=== PATIENT | female | born 1985 | race Caucasian/White ===

== ENCOUNTER 2018-10-23 01:16 | Emergency (ER) | payer MEDICAID, OTHER ==
[~2018-10-23] VITALS: Ht 154.9 cm; Wt 62.3 kg
[2018-10-23 01:17] VITALS: Ht 154.9 cm; Wt 62.3 kg
[2018-10-23] MEDS ORDERED: SOD CHLORIDE 0.9% 500 ML IV STA (01:46)
[2018-10-23] MEDS ORDERED: KETOROLAC 15 MG INJ IV STA (01:46)
--- NOTE | 2018-10-23 01:49 | ERD ---
ER Documentation Chief Complaint Chief Complaint PELVIC PAIN XTODAY HPI 33-year-old female, previously healthy, with LMP 09/06/2018, , presents the emergency department, complaining of acute onset of pelvic pain. The pain is dull, constant, 8/10, associated with nausea and decreased appetite. The patient denies fever, no chills, no dysuria, no constipation or diarrhea, no vaginal discharge. ROS All systems reviewed and are negative except as per history of present illness. Medications Home Meds Active Scripts Acetaminophen* (Tylenol*) 325 Mg Tablet, 2 TAB PO Q6 PRN for PAIN AND OR ELEVATED TEMP, #20 TAB Prov:SANG MANCINI MD 10/23/18 Ibuprofen* (Motrin*) 400 Mg Tab, 400 MG PO Q6H PRN for PAIN AND OR ELEVATED TEMP, #20 TAB Prov:SANG MANCINI MD 10/23/18 Allergies Allergies: Coded Allergies: No Known Allergy (Unverified , 01/08/13) PMhx/Soc History of Surgery: No Anesthesia Reaction: No Hx Neurological Disorder: No Hx Respiratory Disorders: No Hx Cardiac Disorders: No Hx Psychiatric Problems: Yes (anxiety) Hx Miscellaneous Medical Probl: Yes (uterine tumors, knee sprain) Hx Alcohol Use: No Hx Substance Use: No Hx Tobacco Use: No Smoking Status: Never smoker FmHx Family History: No diabetes, No coronary disease Physical Exam Vitals Vital Signs Date Temp Pulse Resp B/P (MAP) Pulse Ox O2 O2 Flow FiO2 Time Delivery Rate 10/23/18 97.2 108 19 154/91 100 01:17 (112) Physical Exam Const: No acute distress Head: Atraumatic Eyes: Normal Conjunctiva ENT: Normal External Ears, Nose and Mouth. Neck: Full range of motion. No meningismus. Resp: Clear to auscultation bilaterally Cardio: Regular rate and rhythm, no murmurs Abd: Guarded, tenderness to palpation in the right lower quadrant, non distended. Normal bowel sounds Skin: No petechiae or rashes Back: No midline or flank tenderness Ext: No cyanosis, or edema Neur: Awake and alert Psych: Normal Mood and Affect Result Diagram: 10/23/18 0201 10/23/18 0201 Results 24 hrs Laboratory Tests Test 10/23/18 01:59 10/23/18 02:01 POC Beta HCG, Qualitative NEGATIVE White Blood Count 11.8 10^3/ul Red Blood Count 4.82 10^6/ul Hemoglobin 14.5 g/dl Hematocrit 43.6 % Mean Corpuscular Volume 90.5 fl Mean Corpuscular Hemoglobin 30.1 pg Mean Corpuscular Hemoglobin Concent 33.3 g/dl Red Cell Distribution Width 13.2 % Platelet Count 304 10^3/UL Mean Platelet Volume 10.3 fl Immature Granulocytes % 0.400 % Neutrophils % 53.4 % Lymphocytes % 35.9 % Monocytes % 8.6 % Eosinophils % 1.4 % Basophils % 0.3 % Nucleated Red Blood Cells % 0.0 /100WBC Immature Granulocytes # 0.050 10^3/ul Neutrophils # 6.3 10^3/ul Lymphocytes # 4.2 10^3/ul Monocytes # 1.0 10^3/ul Eosinophils # 0.2 10^3/ul Basophils # 0.0 10^3/ul Nucleated Red Blood Cells # 0.0 10^3/ul Urine Color YELLOW Urine Clarity SLIGHTLY CLOUDY Urine pH 5.0 Urine Specific [place] 1.011 Urine Ketones NEGATIVE mg/dL Urine Nitrite NEGATIVE mg/dL Urine Bilirubin NEGATIVE mg/dL Urine Urobilinogen NEGATIVE mg/dL Urine Leukocyte Esterase NEGATIVE Mickey/ul Urine Microscopic RBC 2 /HPF Urine Microscopic WBC 4 /HPF Urine Squamous Epithelial Cells FEW /HPF Urine Mucus FEW /HPF Urine Hemoglobin 1+ mg/dL Urine Glucose NEGATIVE mg/dL Urine Total Protein NEGATIVE mg/dl Sodium Level 144 mmol/L Potassium Level 4.4 mmol/L Chloride Level 109 mmol/L Carbon Dioxide Level 23 mmol/L Anion Gap 12 Blood Urea Nitrogen 12 mg/dl Creatinine 0.81 mg/dl Est Glomerular Filtrat Rate mL/min > 60 mL/min Glucose Level 91 mg/dl Calcium Level 10.0 mg/dl Total Bilirubin 0.2 mg/dl Direct Bilirubin 0.00 mg/dl Indirect Bilirubin 0.2 mg/dl Aspartate Amino Transf (AST/SGOT) 31 IU/L Alanine Aminotransferase (ALT/SGPT) 14 IU/L Alkaline Phosphatase 87 IU/L Total Protein 8.8 g/dl Albumin 4.8 g/dl Globulin 4.00 g/dl Albumin/Globulin Ratio 1.20 Lipase 86 U/L Current Medications Medications Dose Sig/Ariana Start Time Status Last (Trade) Ordered Route PRN Stop Time Admin Dose Reason Admin Sodium 500 ml @ Q1H STAT 10/23/18 DC 10/23/18 Chloride 500 mls/hr IV 01:46 02:08 10/23/18 02:45 Ketorolac 15 mg ONCE STAT 10/23/18 DC 10/23/18 Tromethamine IV 01:46 02:09 (Toradol) 10/23/18 01:56 650 mg ONCE ONCE 10/23/18 DC 10/23/18 Acetaminophen PO 03:00 02:41 (Tylenol 10/23/18 03:01 Tab) Morphine 1 mg ONCE STAT 10/23/18 DC 10/23/18 Sulfate IV 02:43 02:56 (morphine) 10/23/18 02:48 Ondansetron 4 mg ONCE STAT 10/23/18 DC 10/23/18 HCl (Zofran IV 02:43 02:56 Inj) 10/23/18 02:48 Patient: OBEY DUONG : 1985 Age: 33 Sex: F MR #: [id number] DOS: 10/23/18 0146 Ordering MD: SANG MANCINI MD Location: [facility] Room/Bed: PROCEDURE: CT Abdomen and pelvis without contrast. CLINICAL INDICATION: Abdominal pain TECHNIQUE: CT scan of the abdomen and pelvis without contrast was performed on a multidetector high-resolution CT scan. . Coronal and sagittal reformatted images were obtained from the axial source images. Standard CT scan of the abdomen pelvis without contrast protocols were performed. The total exam CTDI equals 6.08 mGy and the total exam DLP equals 325.43 mGy-cm. One or more of the following dose reduction techniques were used: - Automated exposure control. - Adjustment of the mA and/or kV according to patient size. Use of iterative reconstruction technique. Dicom images are available COMPARISON: None. FINDINGS: The kidneys are normal in size without calcified calculi hydronephrosis or intra renal masses bilaterally. No evidence of ureteral calcified calculi or dilatation. Partially contracted otherwise unremarkable urinary bladder. Enlarged lobular anteverted anteflexed uterus without definite focal lesion. Prominent central uterine low density likely all menstrual changes. No adnexal masses. Stomach, small bowel, large bowel and appendix unremarkable. No evidence of intra-abdominal free air, free fluid, abscesses or lymphadenopathy. Contracted otherwise unremarkable gallbladder. No biliary ductal dilation. Liver spleen pancreas and adrenal glands unremarkable. Lung bases unremarkable. Aorta unremarkable. Abdominal pelvic wall unremarkable. Osseous structures unremarkable. IMPRESSION: 1. No calcified urinary calculi or obstructive uropathy. 2. No gastrointestinal disease. 3. Negative free air fluid abscesses or lymphadenopathy. RPTAT:AAJJ Procedures/MDM Vital signs stable. Differential diagnosis considered include UTI, cystitis, , endometriosis, pelvic inflammatory disease, ruptured ovarian cyst, ectopic , appendicitis, kidney stone. Less likely malignancy or acute abdomen but is still a possibility. During the ED course the patient remained stable, no new complaints. Results and clinical impression discussed with the patient who agrees with management. The patient is stable to be treated outpatient and will be discharged home with a Rx for ibuprofen and Tylenol, some side effects of prescribed medications (headache, rash, nausea, vomiting, diarrhea, drowsiness, habituation, bleeding, hypertension, interactions with other medications) were reviewed. Follow up with the primary care provider in the next 48h has been recommended. If symptoms persist, worsen or new symptoms develop, then patient should return to the ED immediately. Instructions explained and given directly by me to the patient with acknowledgment and demonstrated understanding. Disclaimer: Inadvertent spelling and grammatical errors are likely due to EHR/dictation software use and do not reflect on the overall quality of patient care. Also, please note that the electronic time recorded on this note does not necessarily reflect the actual time of the patient encounter. Departure Diagnosis: Primary Impression: Acute pain in female pelvis Condition: Stable Additional Instructions: Thank you very much for allowing us to participate in your care. Your health and safety is our top priority at [facility]. The evaluation in the emergency department has been done to rule out an acute emergency, therefore, chronic conditions like malignancy or other diseases have not been evaluated; therefore, you need to follow up with a primary care provider in the next 48h. If symptoms persist, worsen or new symptoms develop, then patient should return to the ED immediately. Call your primary care doctor TOMORROW for an appointment during the next 2-4 days and bring all the information provided. Have prescriptions filled and follow precisely the directions on the label. If the symptoms get worse and your provider is unavailable, return to the Emergency Department immediately. SANG MANCINI MD Oct 23, 2018 01:49
[2018-10-23] MEDS ORDERED: ONDANSETRON 4 MG INJ IV STA (02:43)
[2018-10-23] MEDS ORDERED: morphine 2 MG INJ IV STA (02:43)
[2018-10-23] MEDS ORDERED: ACETAMINOPHEN 325 MG TAB PO ONE (03:00)
[2018-10-23] MEDS ORDERED: IBUP-1561 PO (04:10)
[2018-10-23] MEDS ORDERED: ACET325T33 PO (04:10)
[2018-10-23 04:26] VITALS: BP 114/76; PULSE 80; RESP 18
== END 2018-10-23 04:27 | disposition home or self-care (01) ==
LOC: FTE 01:16
DX: R10.2 Pelvic and perineal pain (principal)
CPT/HCPCS: 36415; 74176; 80053; 81001; 81025; 83690; 85025; 96361; 96374; 96375; J1885; J2270; J2405; J7040; Z7502; Z7610